=== PATIENT | male | born 1990 | race African-American/Black ===

== ENCOUNTER 2017-08-20 10:12 | Day surgery (SDC) | payer SELFPAY ==
[2017-08-18 10:18] LABS: ABSOLUTE BASOPHILS # (AUTO) 0.1 10^3/uL (0.0-0.2); ABSOLUTE EOSINOPHILS # (AUTO) 0.3 10^3/uL (0.0-0.6); ABSOLUTE LYMPHOCYTES (AUTO) 1.4 10^3/uL (0.5-4.7); ABSOLUTE MONOCYTES (AUTO) 0.3 10^3/uL (0.1-1.4); ABSOLUTE NEUT (AUTO) 1.5 10^3/uL (1.7-8.2); BASOPHILS % (AUTO) 1.9 % (0-2); EOSINOPHILS % (AUTO) 7.6 % (0-6); HEMATOCRIT 40.6 % (37.9-51.0); HEMOGLOBIN 13.9 g/dL (13.5-17.0); HGB HCT DIFFERENCE 1.1; LYMPHOCYTES % (AUTO) 38.6 % (13-45); MEAN CORPUSCULAR HEMOGLOBIN 31.8 pg (27.0-33.4); MEAN CORPUSCULAR HGB CONC 34.4 g/dL (32.0-36.0); MEAN CORPUSCULAR VOLUME 93 fl (80-97); MONOCYTES % (AUTO) 9.4 % (3-13); RED BLOOD COUNT 4.38 10^6/uL (4.35-5.55); RED CELL DISTRIBUTION WIDTH 12.2 % (11.5-14.0); SEGMENTED NEUTROPHILS % (AUTO) 42.5 % (42-78); WHITE BLOOD COUNT 3.6 10^3/uL (4.0-10.5)
[2017-08-18 10:20] LABS: APPEARANCE,URINE CLEAR; BILIRUBIN,URINE NEGATIVE (NEGATIVE); GLUCOSE, URINE NEGATIVE (NEGATIVE); KETONES,URINE NEGATIVE (NEGATIVE); LEUKOCYTE ESTERASE,URINE NEGATIVE (NEGATIVE); NITRITE,URINE NEGATIVE (NEGATIVE); PROTEIN,URINE NEGATIVE (NEGATIVE); URINE SPECIFIC GRAVITY 1.033; UROBILINOGEN,URINE NEGATIVE mg/dL (<2.0)
[2017-08-18 10:44] LABS: ANION GAP 11 (5-19); BLOOD UREA NITROGEN 19 mg/dL (7-20); CALCIUM 9.4 mg/dL (8.4-10.2); CARBON DIOXIDE 27 mmol/L (22-30); CHLORIDE 107 mmol/L (98-107); CREATININE RESULT 0.97 mg/dL (0.52-1.25); GLUCOSE 97 mg/dL (75-110); POTASSIUM 4.1 mmol/L (3.6-5.0); SODIUM 145.4 mmol/L (137-145)
--- NOTE | 2017-08-18 12:26 | RADIOLOGY REPORT (SQ) ---
EXAM DESCRIPTION: CHEST PA/LATERAL COMPLETED DATE/TIME: 08/18/2017 10:22 am REASON FOR STUDY: PRE OP COMPARISON: None. EXAM PARAMETERS: NUMBER OF VIEWS: two views TECHNIQUE: Digital Frontal and Lateral radiographic views of the chest acquired. RADIATION DOSE: NA LIMITATIONS: none FINDINGS: LUNGS AND PLEURA: No opacities, masses or pneumothorax. No pleural effusion. MEDIASTINUM AND HILAR STRUCTURES: No masses or contour abnormalities. HEART AND VASCULAR STRUCTURES: Heart normal size. No evidence for failure. BONES: No acute findings. HARDWARE: None in the chest. OTHER: No other significant finding. IMPRESSION: NO SIGNIFICANT RADIOGRAPHIC FINDING IN THE CHEST. TECHNICAL DOCUMENTATION: JOB ID: [id number] [employer]- All Rights Reserved
--- NOTE | 2017-08-18 15:41 | EKG REPORT ---
SEVERITY:- ABNORMAL ECG - SINUS RHYTHM CONSIDER LEFT VENTRICULAR HYPERTROPHY ST ELEV, PROBABLE NORMAL EARLY REPOL PATTERN : Confirmed by: Héctor Chapman 18-Aug-2017 15:41:16
[~2017-08-20 10:12] MED LIST: CEFAZOLIN 2 GM/D5W RTU 2 GM/50 ML RTUPB IV PRN; LACTATED RINGERS 1000 ML IV PRN; LIDOCAINE 0.5% INJ-PF (5 MG/ML) 50 ML SDV SUBCUT PRN
[2017-08-20] MEDS ORDERED: ONDANSETRON HCL INJ/PF 4 MG/2 ML SDV ONE (10:48)
[2017-08-20] MEDS ORDERED: KETOROLAC TROMETHAMINE 60 MG/2 ML SDV ONE (10:48)
[2017-08-20] MEDS ORDERED: ROCURONIUM BROMIDE INJ 50 MG/5 ML VIAL IV ONE (10:48)
[2017-08-20] MEDS ORDERED: DEXAMETHASONE SOD PHOSPHATE INJ 4 MG/1 ML VIAL ONE (10:48)
[2017-08-20] MEDS ORDERED: METOCLOPRAMIDE HCL INJ/PF 10 MG/2 ML SDV ONE (10:48)
[2017-08-20] MEDS ORDERED: LIDOCAINE 2% INJ-PF (20 MG/ML) 2 ML AMPUL ONE (10:48)
[2017-08-20] MEDS ORDERED: SUCCINYLCHOLINE CHLORIDE INJ 200 MG/10 ML VIAL ONE (10:48)
[2017-08-20] MEDS ORDERED: BUPIVACAINE HCL 0.25 % INJ/PF (2.5 MG/1 ML) 30 ML VIAL ONE (12:36)
[2017-08-20] MEDS ORDERED: ACETAMINOPHEN 100 ML IV ONE (12:45)
[2017-08-20] MEDS ORDERED: PROPOFOL INJ 200 MG/20 ML VIAL IV ONE (12:45)
[2017-08-20] MEDS ORDERED: FENTANYL CITRATE INJ/PF 100 MCG/2 ML AMPUL ONE ×2 (12:45)
[2017-08-20] MEDS ORDERED: MIDAZOLAM 2 MG/2 ML INJ ONE (12:45)
[2017-08-20] MEDS ORDERED: DEXMEDETOMIDINE INJ 80 MCG/20 ML VIAL IV ONE (12:46)
[2017-08-20] MEDS ORDERED: HYDROMORPHONE HCL INJ/PF 2 MG/ML AMPULE ONE (12:46)
[2017-08-20] MEDS ORDERED: ONDANSETRON HCL INJ/PF 4 MG/2 ML SDV IV PRN (14:22)
[2017-08-20] MEDS ORDERED: MORPHINE SULFATE 10 MG/ML INJ IV PRN (14:22)
[2017-08-20] MEDS ORDERED: FENTANYL CITRATE INJ/PF 100 MCG/2 ML AMPUL IV PRN ×3 (14:22)
[2017-08-20] MEDS ORDERED: PROMETHAZINE HCL INJ 25 MG/1 ML VIAL IV PRN ×2 (14:22)
[2017-08-20] MEDS ORDERED: MEPERIDINE HCL/PF INJ 25 MG/1 ML DISP.SYRIN IV PRN (14:22)
[2017-08-20] MEDS ORDERED: DIPHENHYDRAMINE HCL 50 MG/ML VIAL IV PRN (14:22)
--- NOTE | 2017-08-20 14:56 | Operative Report ---
Operative Report DATE OF SURGERY: 08/20/17 PREOPERATIVE DIAGNOSIS: Right patellar tendon rupture POSTOPERATIVE DIAGNOSIS: Same OPERATION: Right patella tendon repair SURGEON: DAREN ISLAS ANESTHESIA: GA TISSUE REMOVED OR ALTERED: None COMPLICATIONS: None ESTIMATED BLOOD LOSS: Less than 20 mL INTRAOPERATIVE FINDINGS: As above PROCEDURE: Patient received preoperative antibiotics in the holding area and then was transferred to the operating room where in the supine position patient was induced and intubated successfully. A thigh tourniquet was applied to the right lower extremity. The extremity was then prepped and draped in a normal sterile surgical fashion. Timeout was done identifying the right knee as the correct site. Once the timeout was completed Esmarch was used to exsanguinate the extremity and the tourniquet was inflated at 300 mmHg. A midline incision was done from the midportion of the patella all way down to the tibial tubercle. Sharp dissection with a deep knife was done exposing the patellar tendon tear. Fluid came out of the joint and was suctioned and we cleaned and debrided the inferior pole of the patella exposing the entire pole. I used Metzenbaum scissors to dissect the medial lateral edges of the patella tendon and split the peritenon. Once I was able to visualize the tendon and the inferior pole I proceeded then to drill my 3 holes starting at the center and then placed my 2 other drill holes for medial fall lateral. I proceeded to tap and placed my 5.5 biocomposite corkscrews. With the free needle I was able to feed strands through the patellar tendon and with a Krakw stitch secure the tendon. Bulb irrigation was used to clean out the knee from any bony debris. With the sutured tendon I proceeded to tie knots fixing the tendon to the inferior pole. The knee was in full extension and there was complete opposition of tendon with the inferior pole of the patella. The remaining strands not used to suture the tendon was then used to approximate the retinaculum and soft tissue over the tendon and patella. 0 Vicryl also was used to reinforce the retinaculum and soft tissue. 2-0 Vicryl was used to reapproximate portion of the peritenon. 0 Vicryl was used to approximate the subcutaneous tissue and 2-0 Vicryl for the dermis. Running 4-0 Monocryl stitch was used for closure of the skin. Steri-Strips were placed over the incision covered with 4 x 4 dressing and ABD pad and soft roll. It was overwrapped with Roberto Carlos bandage and the tourniquet was let down. Drapes were removed and patient was placed in a knee immobilizer. Patient was successfully extubated and then transferred sent to PACU in stable condition.
[2017-08-20] MEDS ORDERED: OXYCODONE-ACETAMINOPHEN 5-325 MG TABLET PO PRN ×2 (14:59)
--- NOTE | 2017-08-20 14:59 | PDOC DISCHARGE SUMMARY ---
Discharge Summary (SDC) - Discharge Final Diagnosis: Right patellar tendon repair Date of Surgery: 08/20/17 Discharge Date: 08/20/17 Condition: Good Treatment or Instructions: Patient okay to weight-bear as tolerated as long as he is wearing the knee immobilizer. Patient instructed not to remove knee immobilizer for 2 do range of motion. Instructed to ice and elevate when sitting or laying down. Use crutches for support and balance. Okay to remove dressing in 4 days and shower once dressing is removed. Avoid soaking or bathing. Follow-up in 2 weeks in the office. Prescriptions: Oxycodone HCl/Acetaminophen [Percocet 5-325 mg Tablet] 1 - 2 tab PO ASDIR PRN # 40 tablet PRN Reason: Discharge Diet: As Tolerated Respiratory Treatments at Home: Deep Breathing/Coughing Discharge Activity: No Driving, Keep Legs Elevated, No Lifting/Push/Pulling, Slowly Increase Activity Home Care Assistance: None Needed Adaptive Devices on Discharge: Axillary Crutches Report the Following to Your Physician Immediately: Shortness of Breath, Nausea , Vomiting, Increase in Pain, Fever over 101 Degrees, Unusual Bleeding, Redness , Swelling, Warmth, Increased Soreness, Drainage-Yellow, Drainage-Cross, Drainage -Green, Drainage-Foul Smelling
[2017-08-20] MEDS: FENTANYL CITRATE INJ/PF 100 MCG/2 ML AMPUL ONE ×2 (15:39→15:45)
[2017-08-20 17:49] VITALS: BP 120/77
== END 2017-08-20 18:00 | disposition home or self-care (01) ==
LOC: OROUT 10:12
PROVIDERS: ATTEND Orthopaedic Surgery
PROC: 0LQQ0ZZ Repair Right Knee Tendon, Open Approach (ICD-10-PCS; principal; 2017-08-20 13:00)
DX: M66.88 Spontaneous rupture of other tendons, other sites (principal); F17.210 Nicotine dependence, cigarettes, uncomplicated
CPT/HCPCS: 93005; 36415; 85025; 80048; 81001; 71020; 93010; 27380; L1830; C1713; J2250; J3490 ×3; J1100; J1885; J3010; J2765; J1170; J0330; J2405; J0131; 1320; J2704